=== PATIENT | female | born 1995 | race Hispanic/Latino ===

== ENCOUNTER 2020-04-07 17:45 | Emergency (ER) | payer SELFPAY ==
[~2020-04-07] VITALS: Ht 157.5 cm; Wt 76.0 kg
[2020-04-07] MEDS ORDERED: SODIUM CHLORIDE 0.9% 1000ML 1,000 ML IV STA (18:19)
[2020-04-07] MEDS ORDERED: SODIUM CHLORIDE 0.9% 1000ML 1,000 ML ONE (18:28)
[2020-04-07] MEDS ORDERED: KETOROLAC TROMETHAMINE 30 MG/ML VIAL ONE (18:28)
[2020-04-07] MEDS ORDERED: ACETAMINOPHEN500 MG PO (18:30)
[2020-04-07] MEDS ORDERED: KETOROLAC TROMETHAMINE 30 MG/ML VIAL IV ONE (18:30)
[2020-04-07] MEDS ORDERED: IBUPROFEN IB200 MG PO (18:30)
[2020-04-07] MEDS ORDERED: ONDANSETRON HCL INJ 2MG/ML 2ML 2 MG/ML VIAL IV ONE (18:30)
[2020-04-07] MEDS ORDERED: PROVERA10 MG PO (18:46)
== END 2020-04-07 19:18 | disposition home or self-care (01) ==
LOC: FSED 18:25
DX: N94.6 Dysmenorrhea, unspecified (principal)
CPT/HCPCS: 80053; 81003; 81025; 85025; 96374; 99284; J1885; J7030